=== PATIENT | female | born 1930 | race Two or more races ===

== ENCOUNTER 2018-12-02 19:47 | Emergency (ER) | payer MEDICARE ==
[~2018-12-02] VITALS: Ht 149.9 cm; Wt 49.9 kg
[~2018-12-02 19:47] MED LIST: LOSA25TA38; SIMV10TA84
[2018-12-02 20:31] LABS: Anion Gap 9 (5-15); Blood Urea Nitrogen 27 mg/dL (7-18); Calcium 8.6 mg/dL (8.5-10.1); Carbon Dioxide 24 mmol/L (21-32); Chloride 107 mmol/L (98-107); Glucose 118 mg/dL (74-106); Sodium 140 mmol/L (136-145)
[2018-12-02 20:36] LABS: Alanine Aminotransferase 24 U/L (13-56); Alkaline Phosphatase 88 U/L (45-117); Aspartate Aminotransferase 22 U/L (15-37); BUN/Creatinine Ratio 21.8; Bilirubin, Total 0.3 mg/dL (0.2-1.0); GFR African American 53 mL/min; GFR Non-African American 43 mL/min; Total Protein 7.5 g/dL (6.4-8.2)
[2018-12-02 21:11] LABS: Basophils # (auto) 0 uL; Basophils % (auto) 0.7 % (0.0-2.0); Eosinophils # (auto) 0.4 uL; Eosinophils % (auto) 5.7 % (0.0-7.0); Hemoglobin 12.8 g/dL (12.2-16.2); Lymphocytes # (auto) 2.6 uL; Lymphocytes % (auto) 43.1 % (10.0-50.0); Mean Corpuscular Hemoglobin 32.4 pg (28.0-32.0); Mean Corpuscular Hgb Conc. 33.8 g/dL (32.0-36.0); Monocytes # (auto) 0.5 uL; Monocytes % (auto) 8.5 % (0.0-12.0); Neutrophils # (auto) 2.6 uL; Nucleated Red Blood Cells % 0.1 %; Platelet Count (auto) 262 10^3/uL (140-450); Red Blood Cells 3.96 10^6/uL (4.0-5.20); Red Cell Distribution Width 13.4 % (11.8-14.3); White Blood Cell 6.1 10^3/uL (4.4-10.8)
[2018-12-02] MEDS ORDERED: MAGNESIUM CITRATE SOLUTION 300 ML BTL PO ONE (21:15)
[2018-12-02] MEDS ORDERED: POTASSIUM CHL 20 Meq TABLET PO ONE (21:15)
[2018-12-02] MEDS ORDERED: LACTULOSE 20Gm/30ML SOLN PO ONE (21:15)
[2018-12-03 00:30] VITALS: BP 130/80
== END 2018-12-03 00:45 | disposition home or self-care (01) ==
LOC: EDBD 19:47 → ER 19:50
DX: R55 Syncope and collapse (principal); K59.00 Constipation, unspecified; R42 Dizziness and giddiness; I12.9 Hypertensive chronic kidney disease with stage 1 through stage 4 chronic kidney disease, or unspecified chronic kidney disease; N18.9 Chronic kidney disease, unspecified; E78.5 Hyperlipidemia, unspecified; Z98.51 Tubal ligation status; Z88.6 Allergy status to analgesic agent
CPT/HCPCS: 36415; 70450; 72125; 80053; 83880; 84484; 85025; 93005